=== PATIENT | female | born 2000 ===

== ENCOUNTER → 2024-07-15 | Outpatient (REF) | payer OTHER ==
[2024-07-15 18:25] LABS: Trichomonas vaginalis (AMP) NOT DETECTED (NEGATIVE)
[2024-07-15 18:49] LABS: GC DNA AMPLIFICATION NEGATIVE (NEGATIVE)
== END ==
LOC: M LAB REF 16:19
PROVIDERS: ATTEND Student in an Organized Health Care Education/Training Program
DX: R30.0 Dysuria (principal)